=== PATIENT | male | born 2000 | race African-American/Black ===

== ENCOUNTER 2019-05-30 08:07 | Emergency (ER) | payer OTHER ==
--- NOTE | 2019-05-30 08:59 | XRay Report ---
CHEST 1 VIEW INDICATION: Chest Pain. COMPARISON: None FINDINGS: Support devices: None. Heart: Within normal limits. Lungs/Pleura: No acute air space or interstitial disease. Additional findings: None. IMPRESSION: No acute findings. Signer Name: Devin Christie Jr, MD Signed: 05/30/2019 8:55 AM Workstation Name: [id number]
[2019-05-30] MEDS ORDERED: NORCO 10/325 PO ONE (10:03)
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
[2019-05-30 13:34] VITALS: BP 111/78
== END 2019-05-30 13:34 | disposition home or self-care (01) ==
LOC: EDBD → ED 08:07
DX: S20.219A Contusion of unspecified front wall of thorax, initial encounter (principal); S80.10XA Contusion of unspecified lower leg, initial encounter; S13.4XXA Sprain of ligaments of cervical spine, initial encounter; S39.012A Strain of muscle, fascia and tendon of lower back, initial encounter; M79.661 Pain in right lower leg; M79.662 Pain in left lower leg; Z79.899 Other long term (current) drug therapy; V89.2XXA Person injured in unspecified motor-vehicle accident, traffic, initial encounter; Y93.89 Activity, other specified; Y92.488 Other paved roadways as the place of occurrence of the external cause; Y99.8 Other external cause status
CPT/HCPCS: 71045; 71250; 72100; 72125; 93005; 93010; 99284